=== PATIENT | male | born 1995 | race Two or more races ===

== ENCOUNTER 2021-06-11 22:17 | Emergency (ER) | payer SELFPAY ==
[2021-06-11 23:52] LABS: INFLUENZA A NAA NEGATIVE (NEGATIVE)
[2021-06-12 00:07] LABS: CORONAVIRUS 2019 SARS-COV-2 POSITIVE (NEGATIVE)
[2021-06-12] MEDS ORDERED: ZOFRAN4 M1 PO (02:53)
== END 2021-06-12 03:50 | disposition home or self-care (01) ==
LOC: FER 22:17
PROVIDERS: Emergency Medicine
DX: U07.1 COVID-19 (principal); Z88.0 Allergy status to penicillin
CPT/HCPCS: 99283; U0002